=== PATIENT | female | born 1985 | race Two or more races ===

== ENCOUNTER 2016-10-26 16:58 | Emergency (ER) | payer OTHER ==
[~2016-10-26] VITALS: Ht 160 cm; Wt 64.9 kg
[2016-10-26] MEDS ORDERED: HYDROCODONE/APAP 5/325MG 1 EACH TABLET PO ONE (17:30)
[2016-10-26] MEDS ORDERED: ONDANSETRON 4 MG TAB.RAPDIS PO ONE (17:30)
[2016-10-26] MEDS ORDERED: ONDANSETRON 4 MG TAB.RAPDIS ONE (17:39)
[2016-10-26] MEDS ORDERED: HYDROCODONE/APAP 5/325MG 1 EACH TABLET ONE (17:39)
[2016-10-26 19:25] VITALS: BP 140/72
== END 2016-10-26 19:25 | disposition home or self-care (01) ==
LOC: ER 17:00
DX: R51 Headache (principal); M54.2 Cervicalgia; J45.909 Unspecified asthma, uncomplicated; V49.40XA Driver injured in collision with unspecified motor vehicles in traffic accident, initial encounter; Y93.89 Activity, other specified; Y92.413 State road as the place of occurrence of the external cause; Y99.8 Other external cause status
CPT/HCPCS: 70450; 72125; 99284; A4606; Q0162; Z7610